=== PATIENT | female | born 1995 | race Two or more races ===

== ENCOUNTER 2019-08-03 19:16 | Emergency (ER) | payer OTHER ==
[~2019-08-03] VITALS: Ht 175.3 cm; Wt 90.7 kg
[2019-08-03 19:30] VITALS: BP 142/75
--- NOTE | 2019-08-03 21:12 | RAD ---
Pelvic ultrasound dated 08/03/2019. No comparison available. Clinical indication: Pelvic pain. FINDINGS: Transvaginal pelvic ultrasound performed. Uterus measures 6.3 x 3.8 x 2.8 cm. No focal uterine mass. Endometrial complex is normal in thickness for age measuring 4 mm. Intrauterine contraceptive device in place appears adequately positioned. Right ovary measures 3.2 x 1.6 x 1.6 in diameter. Left ovary measures 5.1 x 4.2 x 3.8 cm. There is a complex cystic lesion of the left ovary that measures up to 4.3 cm in size with low-level internal echoes and no significant internal color flow. Small amount of complex fluid in the left adnexa. Right ovary is unremarkable. Normal color Doppler flow to both ovaries. IMPRESSION: 1. There is a prominent complex cystic lesion at the left ovary measuring up to 4.3 cm in size. This could represent a hemorrhagic cyst or less likely endometrioma. Follow-up imaging in 6-8 weeks to ensure resolution. 2. Small amount of complex free fluid in the left adnexa. 3. Otherwise no acute findings. Electronically signed by: Eder Euceda MD (08/03/2019 9:09 PM) [facility]
--- NOTE | 2019-08-03 22:13 | PHYS DOC ---
Past Medical History Past Medical History: No Pertinent History (COLTON PHILIPPE APRN) Past Surgical History: Tonsillectomy (COLTON PHILIPPE APRN) Alcohol Use: Occasionally Drug Use: None (COLTON PHILIPPE APRN) Adult General Chief Complaint Chief Complaint: PELVIC PAIN HPI HPI Patient is a 23 year old femalecoming to the history who presents to the ED today complaining of mild to moderate intermittent left pelvic pain that began today. Patient denies any exacerbating or relieving factors. Denies any unusual vaginal discharge. Denies any concerns for STDs. Denies any urgency frequency or dysuria. Denies any chance she is . (COLTON PHILIPPE APRN) Review of Systems Review of Systems Constitutional: Denies fever or chills [] Eyes: Denies change in visual acuity, redness, or eye pain [] HENT: Denies nasal congestion or sore throat [] Respiratory: Denies cough or shortness of breath [] Cardiovascular: No additional information not addressed in HPI [] GI: Reports left lower quadrant/pelvic pain. Denies nausea, vomiting, bloody stools or diarrhea [] : Denies dysuria or hematuria [] Musculoskeletal: Denies back pain or joint pain [] Integument: Denies rash or skin lesions [] Neurologic: Denies headache, focal weakness or sensory changes [] All other systems were reviewed and found to be within normal limits, except as documented in this note. (COLTON PHILIPPE APRN) Physical Exam Physical Exam Constitutional: Well developed, well nourished, no acute distress, non-toxic appearance. [] HENT: Normocephalic, atraumatic, bilateral external ears normal, oropharynx moist, no oral exudates, nose normal. [] Eyes: PERRLA, EOMI, conjunctiva normal, no discharge. [] Neck: Normal range of motion, no tenderness, supple, no stridor. [] Cardiovascular:Heart rate regular rhythm, no murmur [] Lungs & Thorax: Bilateral breath sounds clear to auscultation [] Abdomen: Bowel sounds normal, soft, no tenderness, no masses, no pulsatile masses. [] Pelvic exam External pelvic appears normal, cervix is visualized, IUD strings noted in the cervical OS. Trace amount of clear white discharge in the vaginal vault. No CMT, slight left adnexal tenderness on exam Skin: Warm, dry, no erythema, no rash. [] Back: No tenderness, no CVA tenderness. [] Extremities: No tenderness, no cyanosis, no clubbing, ROM intact, no edema. [] Neurologic: Alert and oriented X 3, normal motor function, normal sensory function, no focal deficits noted. [] Psychologic: Affect normal, judgement normal, mood normal. [] (COLTON PHILIPPE APRN) Current Patient Data Vital Signs Vital Signs Date Time Temp Pulse Resp B/P (MAP) Pulse Ox O2 Delivery O2 Flow Rate FiO2 08/03/19 19:30 98.6 82 12 142/75 (97) 97 Room Air 98.6 (EDER SANTAMARIA DO) Lab Values Laboratory Tests Test 08/03/19 19:41 POC Urine HCG, Qualitative Hcg negative (Negative) Microbiology 08/03/19 Wet Prep - Final, Complete (EDER SANTAMARIA DO) EKG EKG [] (COLTON PHILIPPE APRN) Radiology/Procedures Radiology/Procedures []PROCEDURE: PELVIS COMPLETE Pelvic ultrasound dated 08/03/2019. No comparison available. Clinical indication: Pelvic pain. FINDINGS: Transvaginal pelvic ultrasound performed. Uterus measures 6.3 x 3.8 x 2.8 cm. No focal uterine mass. Endometrial complex is normal in thickness for age measuring 4 mm. Intrauterine contraceptive device in place appears adequately positioned. Right ovary measures 3.2 x 1.6 x 1.6 in diameter. Left ovary measures 5.1 x 4.2 x 3.8 cm. There is a complex cystic lesion of the left ovary that measures up to 4.3 cm in size with low-level internal echoes and no significant internal color flow. Small amount of complex fluid in the left adnexa. Right ovary is unremarkable. Normal color Doppler flow to both ovaries. IMPRESSION: 1. There is a prominent complex cystic lesion at the left ovary measuring up to 4.3 cm in size. This could represent a hemorrhagic cyst or less likely endometrioma. Follow-up imaging in 6-8 weeks to ensure resolution. 2. Small amount of complex free fluid in the left adnexa. 3. Otherwise no acute findings. Electronically signed by: Eder Euceda MD (08/03/2019 9:09 PM) [facility] DICTATED and SIGNED BY: EDER EUCEDA MD DATE: 08/03/192108 (COLTON PHILIPPE APRN) Course & Med Decision Making Course & Med Decision Making Pertinent Labs and Imaging studies reviewed. (See chart for details) This is a 23-year-old female patient presenting to the ED today with pelvic pain worse on the left side. Negative urine hCG, wet prep is negative, pelvic ultrasound noted for left hemorrhagic cyst. Follow-up in 6-8 weeks recommended with the PAYROLL AUDIT[facility]. OTC anti-inflammatories like ibuprofen recommended for pain. Heating pad recommended to the pelvic region. (COLTON PHILIPPE APRN) Dragon Disclaimer Dragon Disclaimer This electronic medical record was generated, in whole or in part, using a voice recognition dictation system. (COLTON PHILIPPE APRN) Departure Departure Impression: Primary Impression: Hemorrhagic cyst of left ovary Disposition: HOME, SELF-CARE Condition: STABLE Referrals: UNKNOWN PCP NAME (PCP) ROSALIE RAMIREZ MD Follow-up with your PA[facility]RO[facility] AUDITOR in 2 weeks Patient Instructions: Ovarian Cyst, [id number] Additional Instructions: You were evaluated in the emergency room and noted to have a hemorrhagic cyst on your left ovary. Please follow-up with your PA[facility]ROLL AUDITOR in the next 2 weeks so they can schedule you for an outpatient ultrasound in 6-8 weeks. Please take [id number] pain relievers especially anti-inflammatories Attending Signature Attending Signature I have reviewed the PA/NURSE MIDWIFE's note and plan of care. I was available for consultation as needed during the patient's visit in the emergency department. I agree with the clinical impression, plan, and disposition. (EDER SANTAMARIA DO) COLTON PHILIPPE APRN Aug 03, 2019 22:13 EDER SANTAMARIA DO Aug 04, 2019 03:58
[2019-08-05 16:09] LABS: GC PROBE Negative (Negative)
== END 2019-08-03 22:16 | disposition home or self-care (01) ==
LOC: ER 19:16
DX: N83.202 Unspecified ovarian cyst, left side (principal)
CPT/HCPCS: 76856; 81025; 87086; 87491; 87591; 99285; Q0111